=== PATIENT | female | born 1970 | race Caucasian/White ===

== ENCOUNTER 2020-05-31 09:01 | Outpatient (REF) | payer OTHER, SELFPAY ==
[2020-05-31 09:23] LABS: COVID-19 Test Negative (Negative)
== END 2020-05-31 09:02 | disposition home or self-care (01) ==
LOC: HO.LAB 09:01
PROVIDERS: Visit Provider Internal Medicine
DX: Z20.828 Contact with and (suspected) exposure to other viral communicable diseases (principal)
CPT/HCPCS: 87635

== ENCOUNTER 2020-05-31 11:58 | Outpatient (REF) | payer OTHER, SELFPAY ==
--- NOTE | 2020-05-31 12:03 | MM_ITS ---
EXAMINATION: MM SCREENING DIGITAL BREAST TOMOSYNTHESIS, BILATERAL CLINICAL INFORMATION: Screening. Asymptomatic. The lifetime risk of breast cancer based on the Tyrer-Cuzick Model is 6%. COMPARISON: Mammography: 05/22/2019, 11/19/2018, 05/20/2018 TECHNIQUE: Digital breast tomosynthesis is performed in both the craniocaudal and mediolateral oblique views along with computer-aided detection (CAD). Synthesized 2D images are generated from the tomosynthesis. FINDINGS: There are scattered areas of fibroglandular density (ACR BI-RADS breast composition Category b). There are no significant masses, abnormal calcifications, or other abnormalities. Parenchymal pattern is similar to prior studies. Tightly grouped benign calcifications posterior central 12:00 right breast are better appreciated on tomography and stable. There are no significant changes. MM/MM tomosynthesis screening BI IMPRESSION: No significant changes from prior studies. ASSESSMENT: BI-RADS 2: Benign RECOMMENDATION: Routine annual mammography screening. This patient's information was entered into a reminder system with a target due date for their next mammogram.
== END 2020-05-31 11:59 | disposition home or self-care (01) ==
LOC: HO.MAMMO 11:58
PROVIDERS: PCP Internal Medicine; Visit Provider Internal Medicine
DX: Z12.31 Encounter for screening mammogram for malignant neoplasm of breast (principal)
CPT/HCPCS: 77063; 77067

== ENCOUNTER 2020-07-04 09:45 | Outpatient (REF) | payer OTHER, SELFPAY ==
[2020-07-04 10:29] LABS: COVID-19 Test Negative (Negative); IDNOW Serial# 55D5AD1C
== END 2020-07-04 09:46 | disposition home or self-care (01) ==
LOC: HO.EMPCOV 09:45
PROVIDERS: Visit Provider Internal Medicine
DX: Z20.828 Contact with and (suspected) exposure to other viral communicable diseases (principal)
CPT/HCPCS: 87635; C9803

== ENCOUNTER 2020-10-21 12:20 | Outpatient (REF) | payer OTHER, SELFPAY | END 2020-10-21 12:21 | disposition home or self-care (01) | LOC: HO.EMPCOV 12:20 | PROVIDERS: Visit Provider Internal Medicine | DX: Z20.822 Contact with and (suspected) exposure to COVID-19 (principal) | CPT/HCPCS: 36415; C9803; U0003; U0005 ==

== ENCOUNTER 2021-04-22 14:24 | Outpatient (REF) | payer OTHER, SELFPAY ==
[2021-04-22 14:59] LABS: COVID-19 Test Negative (Negative); IDNOW Serial# 9DD0AD1C
== END 2021-04-22 14:25 | disposition home or self-care (01) ==
LOC: HO.LAB 14:24
PROVIDERS: PCP Hospitalist; Visit Provider Internal Medicine
DX: Z20.822 Contact with and (suspected) exposure to COVID-19 (principal)
CPT/HCPCS: 36415; 87635

== ENCOUNTER 2021-04-26 11:38 | Outpatient (REF) | payer OTHER, SELFPAY ==
[2021-04-26 13:36] LABS: Hematocrit 41.8 % (37-47); Hemoglobin 14.2 g/dl (12.0-16.0); Mean Corpuscular Hemoglobin 32.3 pg (27.0-33.0); Mean Corpuscular Volume 95.2 fL (80-98); Mean Platelet Volume 11.1 fL (9.4-12.3); Platelet Count 325 X10*3/uL (160-400); Red Blood Count 4.39 X10*6/uL (4.20-5.50); Red Cell Distribution Width 12.6 % (11.0-16.0); White Blood Count 5.2 X10*3/uL (4.8-10.8)
[2021-04-26 14:02] LABS: Alanine Aminotransferase 75 U/L (0-31); Albumin Level 4.4 g/dL (3.5-5.0); Alkaline Phosphatase 97 U/L (39-117); Anion Gap 15 (12-20); Aspartate Amino Transferase 51 U/L (5-31); Bilirubin Total 0.6 mg/dL (0.0-1.0); Blood Urea Nitrogen 13 mg/dL (9-16); Calcium 9.7 mg/dL (8.4-10.2); Carbon Dioxide 24 mmol/L (22-29); Chloride 107 mmol/L (96-108); Cholesterol 232 mg/dL; Estimated Glomerular Filt Rate > 60; Glucose Fasting 95 mg/dL (60-99); HDL Cholesterol 53 mg/dL; LDL Cholesterol Calculated 154 mg/dl; Potassium 4.5 mmol/L (3.3-5.1); Sodium 141 mmol/L (135-145); Total Protein 7.3 g/dL (6.5-8.0); Triglycerides 128 mg/dL
== END 2021-04-26 11:39 | disposition home or self-care (01) ==
LOC: HO.WFDLDS 11:38
PROVIDERS: Visit Provider Hospitalist
DX: Z00.00 Encounter for general adult medical examination without abnormal findings (principal)
CPT/HCPCS: 36415; 80053; 80061; 85027

== ENCOUNTER 2022-02-19 14:01 | Outpatient (REF) | payer OTHER, SELFPAY ==
--- NOTE | ~2022-02-19 | XR_ITS ---
EXAMINATION: XR FINGER, LEFT CLINICAL INFORMATION: Pain in joints left hand. COMPARISON: None TECHNIQUE: 3 views of the left thumb. FINDINGS: No fracture. No dislocation. Joint spaces are normal. No focal bone lesion. No soft tissue abnormality. XR/XR finger LT min 2V IMPRESSION: Normal left thumb.
== END 2022-02-19 14:02 | disposition home or self-care (01) ==
LOC: HO.HMGCX 14:01
PROVIDERS: Visit Provider Physician Assistant
DX: M25.542 Pain in joints of left hand (principal)
CPT/HCPCS: 73140

== ENCOUNTER 2022-03-05 15:16 | Outpatient (REF) | payer OTHER, SELFPAY ==
--- NOTE | ~2022-03-05 | MM_ITS ---
EXAMINATION: MM SCREENING DIGITAL BREAST TOMOSYNTHESIS, BILATERAL CLINICAL INFORMATION: Screening. Asymptomatic. The lifetime risk of breast cancer based on the Tyrer-Cuzick Model is 6%. COMPARISON: Mammography: 05/31/2020, 05/22/2019, 11/19/2018, 05/20/2018 TECHNIQUE: Digital breast tomosynthesis is performed in both the craniocaudal and mediolateral oblique views along with computer-aided detection (CAD). Synthesized 2D images are generated from the tomosynthesis. FINDINGS: There are scattered areas of fibroglandular density (ACR BI-RADS breast composition Category b). There are no significant masses, abnormal calcifications, or other abnormalities. Parenchymal pattern is similar to prior studies. There is no developing density or architectural abnormality. The axilla and skin contours are unremarkable. No significant changes. MM/MM tomosynthesis screening BI IMPRESSION: There are no significant changes from prior study. ASSESSMENT: BI-RADS 1: Negative RECOMMENDATION: Routine annual mammography screening. This patient's information was entered into a reminder system with a target due date for their next mammogram.
== END 2022-03-05 15:17 | disposition home or self-care (01) ==
LOC: HO.MAMMO 15:16
PROVIDERS: PCP Hospitalist; Visit Provider Hospitalist
DX: Z12.31 Encounter for screening mammogram for malignant neoplasm of breast (principal)
CPT/HCPCS: 77063; 77067

== ENCOUNTER 2022-03-27 11:00 | Outpatient (RCR) | payer OTHER, SELFPAY ==
--- NOTE | 2022-02-28 16:10 | MHC.OT.EP ---
[address] [phone] Occupational Therapy Plan of Care Date of Evaluation: 02/28/22 Diagnosis: Left thumb pain Assessment: Pt. is a 51 y/o female referred to OT with L thumb pain. Pt. reports a two month history of worsening thumb/radial wrist pain with occasional swelling. Pt. presents with pain limiting function, decreased engineering technical specialist strength, decreased coordination and difficulty performing ADLs/IADLs. Pt. reports a 38.6% limitation per the Quick DASH assessment. She was issued a thumb spica splint from her MD, although she has been experiencing some hypersensitivity near CMC joint so she has not been complaint with use. Kinesiotape was applied for Dequervains symptoms and pt. was educated in indications and wearing schedule this date. Katherine would benefit from skilled OT to address previously noted barriers and assist in return to PLOF. Frequency and Duration: The patient will be seen 2/wk for 4 weeks Short Term Goals: Pain free with BADL's/IADLs Improve L engineering technical specialist strength by 20# Quick DASH score <15% IND with progressive HEP IND with orthosis wear as needed Improve FM coordination AEB 3 sec improvement on functional dexterity test [facility]ci Goals: Same as above Treatment Plan: Therapeutic Exercise Therapeutic Activity Home Exercise Program Splinting Patient Education Desensitization/Sensory Re-ed Edema Control ADL Training Ultrasound Iontophoresis Paraffin Fluidotherapy MHP Cold Packs Joint Mobilization Soft Tissue Mobilization Kinesiotaping Electronically Signed By: Elaina Perez MS OTR/L Please Sign and return to therapist. Thank you once again for your referral.
== END 2022-06-26 14:38 | disposition home or self-care (01) ==
LOC: HO.OT 11:00
PROVIDERS: PCP Hospitalist; Visit Provider Physician Assistant
DX: M25.542 Pain in joints of left hand (principal)
CPT/HCPCS: 29130; 97035; 97110; 97165; 97760